=== PATIENT | male | born 1965 | race American Indian/Alaskan Native ===

== ENCOUNTER 2018-11-21 16:36 | Inpatient (IN) | payer BC ==
--- NOTE | 2018-11-21 16:48 | Emergency Department Report ---
Blank Doc - Documentation Documentation: This is a 53-year-old male that presents with bilateral testicular swelling and irritation. Denies any trauma or injuries. Patient stated was seen by PCP 2 days ago and was instructed to go to the ED [facility] but patient stated has not and came today. This initial assessment/diagnostic orders/clinical plan/treatment(s) is/are subject to change based on patient's health status, clinical progression and re- assessment by fellow clinical providers in the ED. Further treatment and workup at subsequent clinical providers discretion. Patient/guardians urged not to elope from the ED as their condition may be serious if not clinically assessed and managed. Initial orders include: 1- Patient sent to [facility] for further evaluation and treatment 2- UA 3- US doppler
[2018-11-21 17:31] LABS: Bilirubin,Urine NEG (Negative); Blood,Urine NEG (Negative); Color,Urine Yellow (Yellow); Hyaline Casts,Urine 1 /LPF; Mucus,Urine FEW /HPF
--- NOTE | 2018-11-21 17:59 | Emergency Department Report ---
ED General Adult HPI - General Chief complaint: Urogenital-Male Time Seen by Provider: 11/21/18 16:46 Source: patient, old records reviewed (no previous visit) Mode of arrival: Ambulatory Limitations: No Limitations - History of Present Illness Initial comments: 53 year old male with a past history of obesity and hypertension presents to the hospital with a note from his PMD stating that he needs a testicular ultrasound to rule out epididymitis versus torsion. Patient received this on November 18. Patient states he has had bilateral scrotal edema 2 weeks and has been progres sively worsening. Which is about 1 month he has developed progressively worsening bilateral lower extremity edema that then spread to his thigh and abdominal wall. He's also had worsening dyspnea on exertion, orthopnea, and PND. Patient has been receiving outpatient workup and evaluation. He has seen [employer] supervisor Dr Field and had an echocardiogram within the last month. He was informed that he does not have congestive heart failure and that this swelling is likely related to poor blood flow/Circulation. He also reports having outpatient ultrasound of his leg and is scheduled for a stress test. He denies chest pain or fever. Recently treated with and antibiotic for a suspected spide r bite his right lower extremity. He just does not know if he is currently on a water pill. Patient recently returned from [place] via car symptoms and dyspnea started prior to this trip. 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 PMD: Dr. Irwin Grubbs Severity scale (0 -10): 0 - Related Data Allergies Allergy/AdvReac Type Severity Reaction Status Date / Time clindamycin Allergy Hives Verified 11/21/18 16:53 ED Review of Systems ROS: Stated complaint: Other details as noted in HPI Comment: All other systems reviewed and negative ED Past Medical Hx - Past Medical History Hx Hypertension: Yes - Surgical History Additional Surgical History: hernia repair,right fx wrist - Social History Smoking Status: Never Smoker Substance Use Type: Alcohol ED Physical Exam - General Limitations: No Limitations - Other Other exam information: General: No limitations, patient is alert in no acute distress Head exam: Atraumatic, normocephalic Eyes exam: Normal appearance ENT: Moist mucous membrane Neck exam: Normal inspection, full range of motion, no meningismus nontender Respiratory exam: Clear to auscultation bilateral, no wheezes, rales, crackles Cardiovascular: Irregular rhythm, normal rate Abdomen: Soft, nondistended, and nontender, with normal bowel sounds, no rebound, or guarding : Significant bilateral edema without erythema, one, or tenderness exam Extremity: Full range of motion, significance bilateral 3+ lower extremity edema extending up scrotum and abdominal wall. Superficial skin breakdown to both anterior lower legs. Bilateral lower extremity erythema Psychiatric: normal affect, normal mood Skin: Warm, dry, intact ED Course Vital Signs 11/21/18 11/21/18 11/21/18 16:43 16:48 17:48 Temperature 98.7 F 98.7 F Pulse Rate 74 74 Respiratory 20 20 15 Rate Blood Pressure 133/78 Blood Pressure 133/78 [Left] O2 Sat by Pulse 100 100 Oximetry 11/21/18 11/21/18 11/21/18 18:00 18:16 19:12 Temperature Pulse Rate 103 H 114 H 110 H Respiratory 22 21 19 Rate Blood Pressure Blood Pressure [Left] O2 Sat by Pulse 96 94 Oximetry 11/21/18 11/21/18 11/21/18 19:14 19:16 19:30 Temperature Pulse Rate 104 H 112 H 97 H Respiratory 21 22 20 Rate Blood Pressure 121/77 121/77 Blood Pressure 121/77 [Left] O2 Sat by Pulse 96 95 96 Oximetry 11/21/18 11/21/18 11/21/18 19:46 20:00 20:16 Temperature Pulse Rate 99 H 98 H 95 H Respiratory 18 23 18 Rate Blood Pressure 121/77 121/77 121/77 Blood Pressure [Left] O2 Sat by Pulse 96 95 93 Oximetry 11/21/18 11/21/18 11/21/18 20:30 20:46 21:00 Temperature Pulse Rate 107 H 99 H 96 H Respiratory 18 19 19 Rate Blood Pressure 121/77 121/77 121/77 Blood Pressure [Left] O2 Sat by Pulse 95 93 93 Oximetry 11/21/18 11/21/18 11/21/18 21:16 21:30 21:52 Temperature Pulse Rate 87 102 H 110 H Respiratory 19 21 20 Rate Blood Pressure 121/77 121/77 121/77 Blood Pressure [Left] O2 Sat by Pulse 96 94 96 Oximetry 11/21/18 11/21/18 11/21/18 22:00 22:16 22:30 Temperature Pulse Rate 100 H 107 H 103 H Respiratory 26 H 24 22 Rate Blood Pressure 121/77 121/77 121/77 Blood Pressure [Left] O2 Sat by Pulse 96 93 93 Oximetry - Consultations Consultation #1: 11/21/18 23:[address] Field (I did discuss case) ED Medical Decision Making - Lab Data Result diagrams: 11/21/18 18:00 11/21/18 18:00 Lab Results 11/21/18 11/21/18 11/21/18 Range/Units 17:07 17:54 18:00 WBC 4.5 (4.5-11.0) K/mm3 RBC 3.74 (3.65-5.03) M/mm3 Hgb 11.8 (11.8-15.2) gm/dl Hct 36.2 (35.5-45.6) % MCV 97 H (84-94) fl MCH 32 (28-32) pg MCHC 33 (32-34) % RDW 14.4 (13.2-15.2) % Plt Count 195 (140-440) K/mm3 Lymph % (Auto) 23.1 (13.4-35.0) % [place] % (Auto) 14.8 H (0.0-7.3) % Eos % (Auto) 4.4 H (0.0-4.3) % Baso % (Auto) 1.4 (0.0-1.8) % Lymph # 1.0 L (1.2-5.4) K/mm3 [place] # 0.7 (0.0-0.8) K/mm3 Eos # 0.2 (0.0-0.4) K/mm3 Baso # 0.1 (0.0-0.1) K/mm3 Seg Neutrophils % 56.3 (40.0-70.0) % Seg Neutrophils # 2.5 (1.8-7.7) K/mm3 PT (12.2-14.9) Sec. INR (0.87-1.13) APTT (24.2-36.6) Sec. D-Dimer (0-234) ng/mlDDU Sodium (137-145) mmol/L Potassium (3.6-5.0) mmol/L Chloride (98-107) mmol/L Carbon Dioxide (22-30) mmol/L Anion Gap mmol/L BUN (9-20) mg/dL Creatinine (0.8-1.5) mg/dL Estimated GFR ml/min BUN/Creatinine Ratio % Glucose (75-100) mg/dL Calcium (8.4-10.2) mg/dL Total Bilirubin (0.1-1.2) mg/dL AST (5-40) units/L ALT (7-56) units/L Alkaline Phosphatase (35-129) units/L Total Creatine Kinase (55-170) units/L CK-MB (CK-2) (0.0-4.0) ng/mL CK-MB (CK-2) Rel Index (0-4) Troponin T (0.00-0.029) ng/mL NT-Pro-B Natriuret Pep (0-900) pg/mL Total Protein (6.3-8.2) g/dL Albumin (3.9-5) g/dL Albumin/Globulin Ratio % TSH (0.270-4.200) mlU/mL Free T4 (0.76-1.46) ng/dL Urine Color Yellow (Yellow) Urine Turbidity Clear (Clear) Urine pH 5.0 (5.0-7.0) Ur Specific [place] 1.026 (1.003-1.030) Urine Protein 30 mg/dl (Negative) mg/dL Urine Glucose (UA) Neg (Negative) mg/dL Urine Ketones Neg (Negative) mg/dL Urine Blood Neg (Negative) Urine Nitrite Neg (Negative) Urine Bilirubin Neg (Negative) Urine Urobilinogen 4.0 (<2.0) mg/dL Ur Leukocyte Esterase Neg (Negative) Urine WBC (Auto) 1.0 (0.0-6.0) /HPF Urine RBC (Auto) 1.0 (0.0-6.0) /HPF Hyaline Casts 1 /LPF Urine Mucus Few /HPF Urine Opiates Screen Presumptive negative Urine Methadone Screen Presumptive negative Ur Barbiturates Screen Presumptive negative Ur Phencyclidine Scrn Presumptive negative Ur Amphetamines Screen Presumptive negative U Benzodiazepines Scrn Presumptive negative Urine Cocaine Screen Presumptive positive U Marijuana (THC) Screen Presumptive positive Drugs of Abuse Note Disclamer 11/21/18 11/21/18 11/21/18 Range/Units 18:00 18:00 18:00 WBC (4.5-11.0) K/mm3 RBC (3.65-5.03) M/mm3 Hgb (11.8-15.2) gm/dl Hct (35.5-45.6) % MCV (84-94) fl MCH (28-32) pg MCHC (32-34) % RDW (13.2-15.2) % Plt Count (140-440) K/mm3 Lymph % (Auto) (13.4-35.0) % [place] % (Auto) (0.0-7.3) % Eos % (Auto) (0.0-4.3) % Baso % (Auto) (0.0-1.8) % Lymph # (1.2-5.4) K/mm3 [place] # (0.0-0.8) K/mm3 Eos # (0.0-0.4) K/mm3 Baso # (0.0-0.1) K/mm3 Seg Neutrophils % (40.0-70.0) % Seg Neutrophils # (1.8-7.7) K/mm3 PT 15.5 H (12.2-14.9) Sec. INR 1.16 H (0.87-1.13) APTT 30.4 (24.2-36.6) Sec. D-Dimer 1349.96 H (0-234) ng/mlDDU Sodium 142 (137-145) mmol/L Potassium 4.0 (3.6-5.0) mmol/L Chloride 101.6 (98-107) mmol/L Carbon Dioxide 31 H (22-30) mmol/L Anion Gap 13 mmol/L BUN 18 (9-20) mg/dL Creatinine 1.1 (0.8-1.5) mg/dL Estimated GFR > 60 ml/min BUN/Creatinine Ratio 16 % Glucose 84 (75-100) mg/dL Calcium 8.5 (8.4-10.2) mg/dL Total Bilirubin 0.60 (0.1-1.2) mg/dL AST 28 (5-40) units/L ALT 25 (7-56) units/L Alkaline Phosphatase 86 (35-129) units/L Total Creatine Kinase 313 H (55-170) units/L CK-MB (CK-2) 7.0 H (0.0-4.0) ng/mL CK-MB (CK-2) Rel Index 2.2 (0-4) Troponin T < 0.010 (0.00-0.029) ng/mL NT-Pro-B Natriuret Pep 1466 H (0-900) pg/mL Total Protein 6.3 (6.3-8.2) g/dL Albumin 3.3 L (3.9-5) g/dL Albumin/Globulin Ratio 1.1 % TSH (0.270-4.200) mlU/mL Free T4 (0.76-1.46) ng/dL Urine Color (Yellow) Urine Turbidity (Clear) Urine pH (5.0-7.0) Ur Specific [place] (1.003-1.030) Urine Protein (Negative) mg/dL Urine Glucose (UA) (Negative) mg/dL Urine Ketones (Negative) mg/dL Urine Blood (Negative) Urine Nitrite (Negative) Urine Bilirubin (Negative) Urine Urobilinogen (<2.0) mg/dL Ur Leukocyte Esterase (Negative) Urine WBC (Auto) (0.0-6.0) /HPF Urine RBC (Auto) (0.0-6.0) /HPF Hyaline Casts /LPF Urine Mucus /HPF Urine Opiates Screen Urine Methadone Screen Ur Barbiturates Screen Ur Phencyclidine Scrn Ur Amphetamines Screen U Benzodiazepines Scrn Urine Cocaine Screen U Marijuana (THC) Screen Drugs of Abuse Note 11/21/18 Range/Units 18:00 WBC (4.5-11.0) K/mm3 RBC (3.65-5.03) M/mm3 Hgb (11.8-15.2) gm/dl Hct (35.5-45.6) % MCV (84-94) fl MCH (28-32) pg MCHC (32-34) % RDW (13.2-15.2) % Plt Count (140-440) K/mm3 Lymph % (Auto) (13.4-35.0) % [place] % (Auto) (0.0-7.3) % Eos % (Auto) (0.0-4.3) % Baso % (Auto) (0.0-1.8) % Lymph # (1.2-5.4) K/mm3 [place] # (0.0-0.8) K/mm3 Eos # (0.0-0.4) K/mm3 Baso # (0.0-0.1) K/mm3 Seg Neutrophils % (40.0-70.0) % Seg Neutrophils # (1.8-7.7) K/mm3 PT (12.2-14.9) Sec. INR (0.87-1.13) APTT (24.2-36.6) Sec. D-Dimer (0-234) ng/mlDDU Sodium (137-145) mmol/L Potassium (3.6-5.0) mmol/L Chloride (98-107) mmol/L Carbon Dioxide (22-30) mmol/L Anion Gap mmol/L BUN (9-20) mg/dL Creatinine (0.8-1.5) mg/dL Estimated GFR ml/min BUN/Creatinine Ratio % Glucose (75-100) mg/dL Calcium (8.4-10.2) mg/dL Total Bilirubin (0.1-1.2) mg/dL AST (5-40) units/L ALT (7-56) units/L Alkaline Phosphatase (35-129) units/L Total Creatine Kinase (55-170) units/L CK-MB (CK-2) (0.0-4.0) ng/mL CK-MB (CK-2) Rel Index (0-4) Troponin T (0.00-0.029) ng/mL NT-Pro-B Natriuret Pep (0-900) pg/mL Total Protein (6.3-8.2) g/dL Albumin (3.9-5) g/dL Albumin/Globulin Ratio % TSH 2.940 (0.270-4.200) mlU/mL Free T4 1.38 (0.76-1.46) ng/dL Urine Color (Yellow) Urine Turbidity (Clear) Urine pH (5.0-7.0) Ur Specific [place] (1.003-1.030) Urine Protein (Negative) mg/dL Urine Glucose (UA) (Negative) mg/dL Urine Ketones (Negative) mg/dL Urine Blood (Negative) Urine Nitrite (Negative) Urine Bilirubin (Negative) Urine Urobilinogen (<2.0) mg/dL Ur Leukocyte Esterase (Negative) Urine WBC (Auto) (0.0-6.0) /HPF Urine RBC (Auto) (0.0-6.0) /HPF Hyaline Casts /LPF Urine Mucus /HPF Urine Opiates Screen Urine Methadone Screen Ur Barbiturates Screen Ur Phencyclidine Scrn Ur Amphetamines Screen U Benzodiazepines Scrn Urine Cocaine Screen U Marijuana (THC) Screen Drugs of Abuse Note - EKG Data -: EKG Interpreted by Me (afkarla ) EKG shows normal: axis (qrs -27), QRS complexes (qrsd 123), ST-T waves (no stemi) Rate: normal (98) - EKG Data When compared to previous EKG there are: previous EKG unavailable - Radiology Data Radiology results: report reviewed PROCEDURE: XR CHEST ROUTINE 2V TECHNIQUE: Chest 2 views HISTORY: sob COMPARISONS: FINDINGS: Cardiac and mediastinal contours are unremarkable. No focal pulmonary infiltrate identified. No pleural fluid collection seen. Pulmonary vasculature is unremarkable. IMPRESSION: No acute findings in the chest PROCEDURE: VL VENOUS DUPLEX LE BILAT TECHNIQUE: Ultrasound bilateral lower extremity venous system with pulsed and color Doppler evaluation HISTORY: b/l leg swelling COMPARISONS: FINDINGS: Deep venous system of the lower extremities demonstrates normal sonographic appearance. There is abnormal flow and waveforms seen on Doppler evaluation. Normal compressibility. There is a cystic focus at the right popliteal fossa 3.6 x 0.8 cm IMPRESSION: Yo's cyst right popliteal fossa No evidence for acute deep venous thrombosis. PROCEDURE: CT ANGIO CHEST TECHNIQUE: Computerized tomographic angiography of the chest was performed after the IV injection of iodinated nonionic contrast including image processing. The image data was postprocessed using 2-dimensional multiplanar reformatted (MPR) and 3-dimensional (MIP and/or volume rendered) techniques. Automated exposure control, adjustment of mA and/or kV according to patient size, or iterative reconstruction dose optimization techniques were utilized. CT DOSE LENGTH PRODUCT: mGycm HISTORY: elevated ddimer, sob COMPARISONS: None . FINDINGS: Heart and pericardium: Normal. Thoracic aorta: Normal. Pulmonary vasculature: There is no pulmonary embolism.. Lymph nodes: No enlarged thoracic lymph nodes. Lungs: Lungs are expanded. There are no infiltrates.. Pleural space: There is a moderate right pleural effusion. There is no pneumothorax.. Musculoskeletal structures: No significant abnormality. Upper abdominal structures: No significant abnormality. IMPRESSION: There is no thoracic aortic aneurysm There is no pulmonary embolism.. Lungs are expanded. There are no infiltrates.. There is a moderate right pleural effusion. There is no pneumothorax.. Testicular ultrasound: Verbal report provided since tech had difficulty standing studies to radiologist. No torsion. Scrotal wall edema noted. testicles unremarkable - Medical Decision Making No signs of DVT or PE. Patient has significant edema, a pleural effusion on CT chest, and new onset atrial fibrillation. Patient's medications are not available for review at this time. Patient will be admitted to the hospital further treatment and workup. - Differential Diagnosis PE, heart failure, liver failure, lung failure, CAD, DVT Critical Care Time: No Critical care attestation.: If time is entered above; I have spent that time in minutes in the direct care of this critically ill patient, excluding procedure time. ED Disposition Clinical Impression: Edema, Pleural effusion, right, New onset atrial fibrillation, Cocaine abuse Disposition: DC- TO HOME OR SELFCARE Is pt being admited?: Yes Condition: Stable Time of Disposition: 23:12 (Dr Lucia/hosp)
[2018-11-21 18:15] LABS: Basophils # (Auto) 0.1 K/mm3 (0.0-0.1); Basophils % (Auto) 1.4 % (0.0-1.8); Eosinophils # (Auto) 0.2 K/mm3 (0.0-0.4); Eosinophils % (Auto) 4.4 % (0.0-4.3); Hematocrit 36.2 % (35.5-45.6); Hemoglobin 11.8 gm/dl (11.8-15.2); Lymphocytes % (Auto) 23.1 % (13.4-35.0); Mean Corpuscular HGB Conc 33 % (32-34); Mean Corpuscular Volume 97 fl (84-94); Monocytes # (Auto) 0.7 K/mm3 (0.0-0.8); Monocytes % (Auto) 14.8 % (0.0-7.3); Platelet Count 195 K/mm3 (140-440); Red Blood Count 3.74 M/mm3 (3.65-5.03); Red Cell Distribution Width 14.4 % (13.2-15.2)
[2018-11-21 18:25] LABS: INR 1.16 (0.87-1.13)
[2018-11-21 18:26] LABS: Partial Thromboplastin Time 30.4 Sec. (24.2-36.6)
[2018-11-21 18:33] LABS: Alanine Aminotransferase 25 units/L (7-56); Albumin 3.3 g/dL (3.9-5); BUN/Creatinine Ratio 16; Blood Urea Nitrogen 18 mg/dL (9-20); Calcium 8.5 mg/dL (8.4-10.2); Hemolysis Index 5
[2018-11-21 18:33] LABS: Amphetamine Screen,Urine PRESUMPTIVE NEGATIVE; Benzodiazepines Screen,Urine PRESUMPTIVE NEGATIVE; Methadone Screen,Urine PRESUMPTIVE NEGATIVE; Opiate Screen,Urine PRESUMPTIVE NEGATIVE
--- NOTE | 2018-11-21 18:35 | XRay Report ---
PROCEDURE: XR CHEST ROUTINE 2V TECHNIQUE: Chest 2 views HISTORY: sob COMPARISONS: FINDINGS: Cardiac and mediastinal contours are unremarkable. No focal pulmonary infiltrate identified. No pleur al fluid collection seen. Pulmonary vasculature is unremarkable. IMPRESSION: No acute findings in the chest This document is electronically signed by Wei Odonnell MD., November 21 2018 06:33:13 PM ET
[2018-11-21 18:49] LABS: Cannabinoid Screen,Urine PRESUMPTIVE POSITIVE; Cocaine Screen,Urine PRESUMPTIVE POSITIVE
--- NOTE | 2018-11-21 19:37 | Vascular Lab Report ---
PROCEDURE: VL VENOUS DUPLEX LE BILAT TECHNIQUE: Ultrasound bilateral lower extremity venous system with pulsed and color Doppler evaluati on HISTORY: b/l leg swelling COMPARISONS: FINDINGS: Deep venous system of the lower extremities demonstrates normal sonographic appearance. There is abno rmal flow and waveforms seen on Doppler evaluation. Normal compressibility. There is a cystic focus at the right popliteal fossa 3.6 x 0.8 cm IMPRESSION: Yo's cyst right popliteal fossa No evidence for acute deep venous thrombosis. This document is electronically signed by Wei Odonnell MD., November 21 2018 07:34:40 PM ET
[2018-11-21 19:54] LABS: Free T4 (Free Thyroxine) 1.38 ng/dL (0.76-1.46)
--- NOTE | 2018-11-21 22:54 | Cat Scan Report ---
PROCEDURE: CT ANGIO CHEST TECHNIQUE: Computerized tomographic angiography of the chest was performed after the IV injection of iodinated nonionic contrast including image processing. The image data was postprocessed using 2-di mensional multiplanar reformatted (MPR) and 3-dimensional (MIP and/or volume rendered) techniques. Au tomated exposure control, adjustment of mA and/or kV according to patient size, or iterative reconstr uction dose optimization techniques were utilized. CT DOSE LENGTH PRODUCT: mGycm HISTORY: elevated ddimer, sob COMPARISONS: None . FINDINGS: Heart and pericardium: Normal. Thoracic aorta: Normal. Pulmonary vasculature: There is no pulmonary embolism.. Lymph nodes: No enlarged thoracic lymph nodes. Lungs: Lungs are expanded. There are no infiltrates.. Pleural space: There is a moderate right pleural effusion. There is no pneumothorax.. Musculoskeletal structures: No significant abnormality. Upper abdominal structures: No significant abnormality. IMPRESSION: There is no thoracic aortic aneurysm There is no pulmonary embolism.. Lungs are expanded. There are no infiltrates.. There is a moderate right pleural effusion. There is no pneumothorax.. This document is electronically signed by Fabio Guzman MD., November 21 2018 10:51:53 PM ET
[2018-11-21] MEDS ORDERED: LASIX IV ONE (23:44)
[2018-11-21] MEDS ORDERED: SODIUM CHLORIDE FLUSH SYRINGE 10 ML IV PRN (23:44)
[2018-11-21] MEDS ORDERED: ZOFRAN IV PRN (23:44)
[2018-11-21] MEDS ORDERED: PERCOCET 5/325 PO PRN (23:44)
[2018-11-21] MEDS ORDERED: TYLENOL PO PRN (23:44)
--- NOTE | 2018-11-21 23:49 | History and Physical Report ---
History of Present Illness Date of examination: 11/21/18 History of present illness: 53-year-old man with a history of hypertension, irregular heartbeat comes to emergency room for evaluation of lower extremity edema and has gotten progressively worse, now involving the thigh, scrotum, abdomen. His symptoms started 1-1/2 months ago. Also complaining of PND, orthopne times several months for 7 months. Patient had been seen a student development specialist, he had an echocardiogram done. Also stated that he was bitten on the right leg by a spider in July. Review of systems Constitutional: no weight loss, chills, fever Ears, eyes, nose, mouth and throat: no nasal congestion, no nasal discharge, no sinus pressure, no vision change, no red eye. Neck: No neck pain or rigidity. Cardiovascular: no palpitations, chest pain Respiratory: no cough, +shortness of breath Gastrointestinal: no hematochezia, abdominal pain Genitourinary : no frequency , no hematuria Musculoskeletal: no joint swelling or muscle ache Integumentary: no rash, no pruritis Neurological: no parathesias, no focal weakness Endocrine: no cold or heat intolerance, no polyuria or polydipsia Hematologic/Lymphatic: no easy bruising, no easy bleeding, no gland swelling Allergic/Immunologic: no urticaria, no angioedema. PAST MEDICAL HISTORY: irregular heartbeat, hypertension PAST SURGICAL HISTORY: Hernia repair SOCIAL HISTORY: Drink 2 glasses of wine on weekends, + cocaine, no tobacco FAMILY HISTORY: Hypertension Medications and Allergies Allergies Allergy/AdvReac Type Severity Reaction Status Date / Time clindamycin Allergy Hives Verified 11/21/18 16:53 Home Medications Medication Instructions Recorded Confirmed Last Taken Type Bisoprolol Fumarate 10 mg PO DAILY 11/21/18 11/21/18 11/21/18 08:00 History Chlorthalidone 25 mg PO AMHY 11/21/18 11/21/18 11/21/18 08:00 History Meloxicam 15 mg PO HS 11/21/18 11/21/18 11/20/18 21:00 History NIFEdipine [Nifedipine ER] 60 mg PO HS 11/21/18 11/21/18 11/20/18 21:00 History Spironolactone 25 mg PO DAILY 11/21/18 11/21/18 11/21/18 08:00 History tiZANidine [Zanaflex] 4 mg PO HS 11/21/18 11/21/18 11/20/18 21:00 History Active Meds: Active Medications Acetaminophen (Tylenol) 650 mg PO Q4H PRN PRN Reason: Pain MILD(1-3)/Fever >100.5/BOONE Enoxaparin Sodium (Lovenox) 30 mg SUB-Q QDAY NICOLE Furosemide (Lasix) 40 mg IV ONCE ONE Stop: 11/21/18 23:45 Furosemide (Lasix) 40 mg IV 0600,1800 NICOLE Ondansetron HCl (Zofran) 4 mg IV Q8H PRN PRN Reason: Nausea And Vomiting Oxycodone/Acetaminophen (Percocet 5/325) 1 tab PO Q6H PRN PRN Reason: Pain, Moderate (4-6) Sodium Chloride (Sodium Chloride Flush Syringe 10 Ml) 10 ml IV BID NICOLE Sodium Chloride (Sodium Chloride Flush Syringe 10 Ml) 10 ml IV PRN PRN PRN Reason: LINE FLUSH Exam - Physical Exam Narrative exam: General Apperance: The patient lying in bed, breathing comfortable HEENT: Normocephalic, atraumatic. Pupils equally round and reactive to light, EOMI, no sclericterus or JVD or thyromegaly or nodule. , no carotid bruit, mucous membranes moist, no exudate or erythema Heart: S1-S2, regular is rhythm Lungs: Clear to auscultation bilaterally, breathing comfortable Abdomen: Positive bowel sounds, soft, nontender, nondistended, no organomegaly Extremities: 3+ edema up to the abdomen, no cyanosis clubbing Skin: Right leg wound, no rash, nodule, warm and dry Neuro: cranial nerves 2-12 intact, speech is fluent, motor/sensory intact - Constitutional Vitals: Temp Pulse Resp BP Pulse Ox 98.7 F 97 H 20 124/94 92 11/21/18 16:48 11/21/18 23:35 11/21/18 23:35 11/21/18 23:35 11/21/18 23:35 Results - Labs CBC & Chem 7: 11/21/18 18:00 11/21/18 18:00 Labs: Abnormal lab results 11/21/18 11/21/18 11/21/18 Range/Units 18:00 18:00 18:00 MCV 97 H (84-94) fl [place] % (Auto) 14.8 H (0.0-7.3) % Eos % (Auto) 4.4 H (0.0-4.3) % Lymph # 1.0 L (1.2-5.4) K/mm3 PT 15.5 H (12.2-14.9) Sec. INR 1.16 H (0.87-1.13) D-Dimer 1349.96 H (0-234) ng/mlDDU Carbon Dioxide 31 H (22-30) mmol/L Total Creatine Kinase (55-170) units/L CK-MB (CK-2) (0.0-4.0) ng/mL NT-Pro-B Natriuret Pep 1466 H (0-900) pg/mL Albumin 3.3 L (3.9-5) g/dL 11/21/18 Range/Units 18:00 MCV (84-94) fl [place] % (Auto) (0.0-7.3) % Eos % (Auto) (0.0-4.3) % Lymph # (1.2-5.4) K/mm3 PT (12.2-14.9) Sec. INR (0.87-1.13) D-Dimer (0-234) ng/mlDDU Carbon Dioxide (22-30) mmol/L Total Creatine Kinase 313 H (55-170) units/L CK-MB (CK-2) 7.0 H (0.0-4.0) ng/mL NT-Pro-B Natriuret Pep (0-900) pg/mL Albumin (3.9-5) g/dL - Imaging and Cardiology Chest x-ray: report reviewed CT scan - chest: report reviewed Assessment and Plan Doppler of the lower extremity shows no DVT Testicular ultrasound pending Assessment Anasarca, suspect CHF A. fib hypertension Lower extremity wound Substance abuse Plan Admit to medicine Diurese with IV Lasix Check cardiac enzymes, echo, consult cardiology Defer anticoagulation to cardiology Consult wound care, start asa Continue appropriate outpatient medications
[2018-11-22 03:13] LABS: Basophils % (Auto) 0.6 % (0.0-1.8); Eosinophils # (Auto) 0.2 K/mm3 (0.0-0.4); Eosinophils % (Auto) 4.8 % (0.0-4.3); Hematocrit 39.8 % (35.5-45.6); Hemoglobin 12.9 gm/dl (11.8-15.2); Lymphocytes # (Auto) 1.4 K/mm3 (1.2-5.4); Lymphocytes % (Auto) 29.4 % (13.4-35.0); Mean Corpuscular HGB Conc 33 % (32-34); Mean Corpuscular Volume 97 fl (84-94); Monocytes # (Auto) 0.7 K/mm3 (0.0-0.8); Monocytes % (Auto) 14.3 % (0.0-7.3); Platelet Count 198 K/mm3 (140-440); Red Blood Count 4.09 M/mm3 (3.65-5.03); Red Cell Distribution Width 14.6 % (13.2-15.2)
[2018-11-22 03:32] LABS: Creatine Kinase MB 6.1 ng/mL (0.0-4.0)
[2018-11-22 03:35] LABS: BUN/Creatinine Ratio 15; Blood Urea Nitrogen 17 mg/dL (9-20); Calcium 8.6 mg/dL (8.4-10.2); Hemolysis Index 7
[2018-11-22 06:31] LABS: Creatine Kinase MB 5.9 ng/mL (0.0-4.0)
[2018-11-22] MEDS: LASIX IV SCH ×2 (06:45→18:22)
[2018-11-22] MEDS ORDERED: LOVENOX SUB-Q SCH ×2 (10:00→16:00)
[2018-11-22] MEDS ORDERED: BISOPROLOL FUMARATE 10 MG PO SCH (10:00)
--- NOTE | 2018-11-22 11:47 | Consultation ---
History of Present Illness Consult date: 11/22/18 Requesting physician: PRASHANT CATES Consult reason: congestive heart failure History of present illness: The patient is followed by Dr. Field in our office. He has a history of a persistent atrial fibrillation. He presents with onset of bilateral lower extremity edema, orthopnea and shortness of breath since July 2018. He has also noted scrotal edema for 1.5 weeks. He denies chest pain. He presented to the ER due to worsening of symptoms. Chest CTA was reported as showing moderate right pleural effusion. His chest x-ray however does not show significant pleural effusion. He had a venous Doppler study of the LEs late last year which showed venous insufficiency involving both popliteal veins. Past History Past Medical History: atrial fib, hypertension Past Surgical History: hernia repair Social history: other (cocaine and marijuana). denies: smoking Family history: CAD Medications and Allergies Allergies Allergy/AdvReac Type Severity Reaction Status Date / Time clindamycin Allergy Hives Verified 11/21/18 16:53 Home Medications Medication Instructions Recorded Confirmed Last Taken Type Bisoprolol Fumarate 10 mg PO DAILY 11/21/18 11/21/18 11/21/18 08:00 History Chlorthalidone 25 mg PO AMHY 11/21/18 11/21/18 11/21/18 08:00 History Meloxicam 15 mg PO HS 11/21/18 11/21/18 11/20/18 21:00 History NIFEdipine [Nifedipine ER] 60 mg PO HS 11/21/18 11/21/18 11/20/18 21:00 History Spironolactone 25 mg PO DAILY 11/21/18 11/21/18 11/21/18 08:00 History tiZANidine [Zanaflex] 4 mg PO HS 11/21/18 11/21/18 11/20/18 21:00 History Active Meds: Active Medications Acetaminophen (Tylenol) 650 mg PO Q4H PRN PRN Reason: Pain MILD(1-3)/Fever >100.5/BOONE Aspirin (Aspirin) 325 mg PO QDAY NICOLE Enoxaparin Sodium (Lovenox) 40 mg SUB-Q QDAY NICOLE Furosemide (Lasix) 40 mg IV 0600,1800 NICOLE Last Admin: 11/22/18 06:45 Dose: 40 mg Documented by: Miscellaneous Medication (Bisoprolol Fumarate [Bisoprolol Fumarate]) 10 mg PO DAILY [facility] Ondansetron HCl (Zofran) 4 mg IV Q8H PRN PRN Reason: Nausea And Vomiting Oxycodone/Acetaminophen (Percocet 5/325) 1 tab PO Q6H PRN PRN Reason: Pain, Moderate (4-6) Pneumococcal Polyvalent Vaccine (Pneumovax 23) 0.5 ml IM .ONCE ONE Stop: 11/22/18 12:01 Sodium Chloride (Sodium Chloride Flush Syringe 10 Ml) 10 ml IV BID [facility] Sodium Chloride (Sodium Chloride Flush Syringe 10 Ml) 10 ml IV PRN PRN PRN Reason: LINE FLUSH Review of Systems Constitutional: no fever, no chills Ears, nose, mouth and throat: no ear pain, no ear discharge, no sore throat Cardiovascular: orthopnea, edema, no chest pain Respiratory: dyspnea on exertion, no cough Gastrointestinal: no abdominal pain, no nausea, no vomiting, no diarrhea, no constipation Genitourinary Male: no dysuria, no urinary frequency Rectal: no pain, no bleeding Musculoskeletal: no neck stiffness, no neck pain, no myalgias Integumentary: no rash, no pruritis Neurological: no paralysis, no weakness, no parathesias, no headaches Endocrine: no cold intolerance, no heat intolerance Hematologic/Lymphatic: no easy bruising, no easy bleeding Allergic/Immunologic: no urticaria, no wheezing Physical Examination Vital Signs Last Vital Signs Temp 97.7 F 11/22/18 07:57 Pulse 111 H 11/22/18 04:00 Resp 18 11/22/18 07:57 BP 132/72 11/22/18 07:57 Pulse Ox 98 11/22/18 05:30 General appearance: no acute distress HEENT: Positive: EOMI, Normocephaly, Mucus Membranes Moist Neck: Positive: neck supple, trachea midline, JVD/HJR (elevated) Cardiac: Positive: Reg Rate and Rhythm, S1/S2 Lungs: Positive: Decreased Breath Sounds (at bases) Neuro: Positive: Grossly Intact Abdomen: Positive: Soft, Active Bowel Sounds. Negative: Tender Skin: Positive: Wound (both legs) Musculoskeletal: Normal Range of Motion Extremities: Present: edema (moderate pitting bilateral leg edema) Results 11/22/18 02:50 11/22/18 02:50 Cardiac Enzymes 11/21/18 11/21/18 11/22/18 Range/Units 18:00 18:00 02:50 AST 28 (5-40) units/L CK-MB (CK-2) 7.0 H 6.1 H (0.0-4.0) ng/mL 11/22/18 Range/Units 05:13 AST (5-40) units/L CK-MB (CK-2) 5.9 H (0.0-4.0) ng/mL Coagulation 11/21/18 Range/Units 18:00 PT 15.5 H (12.2-14.9) Sec. INR 1.16 H (0.87-1.13) APTT 30.4 (24.2-36.6) Sec. CBC 11/21/18 11/22/18 Range/Units 18:00 02:50 WBC 4.5 4.7 (4.5-11.0) K/mm3 RBC 3.74 4.09 (3.65-5.03) M/mm3 Hgb 11.8 12.9 (11.8-15.2) gm/dl Hct 36.2 39.8 (35.5-45.6) % Plt Count 195 198 (140-440) K/mm3 Lymph # 1.0 L 1.4 (1.2-5.4) K/mm3 [place] # 0.7 0.7 (0.0-0.8) K/mm3 Eos # 0.2 0.2 (0.0-0.4) K/mm3 Baso # 0.1 0.0 (0.0-0.1) K/mm3 Comprehensive Metabolic Panel 11/21/18 11/22/18 Range/Units 18:00 02:50 Sodium 142 143 (137-145) mmol/L Potassium 4.0 3.9 (3.6-5.0) mmol/L Chloride 101.6 98.3 (98-107) mmol/L Carbon Dioxide 31 H 33 H (22-30) mmol/L BUN 18 17 (9-20) mg/dL Creatinine 1.1 1.1 (0.8-1.5) mg/dL Glucose 84 104 H (75-100) mg/dL Calcium 8.5 8.6 (8.4-10.2) mg/dL AST 28 (5-40) units/L ALT 25 (7-56) units/L Alkaline Phosphatase 86 (35-129) units/L Total Protein 6.3 (6.3-8.2) g/dL Albumin 3.3 L (3.9-5) g/dL - Imaging and Cardiology EKG: image reviewed EKG interpretations - Telemetry EKG Rhythm: Atrial Fibrillation - EKG Supraventricular dysrhythmia: atrial fibrillation Assessment and Plan Initiate guideline-directed heart failure therapy. Obtain echocardiogram. Anticoagulation for atrial fibrillation. - Patient Problems (1) Acute heart failure Current Visit: Yes Status: Acute (2) Persistent atrial fibrillation Current Visit: Yes Status: Acute (3) Hypertension Current Visit: Yes Status: Chronic Qualifiers: Hypertension type: essential hypertension Qualified Code(s): I10 - Ess ential (primary) hypertension (4) Morbid obesity Current Visit: Yes Status: Chronic (5) Chronic venous insufficiency Current Visit: Yes Status: Chronic
[2018-11-22] MEDS ORDERED: AFLURIA QUAD 2018-2019 SYRINGE IM ONE (12:00)
[2018-11-22] MEDS ORDERED: PNEUMOVAX 23 IM ONE (12:00)
[2018-11-22] MEDS: ASPIRIN PO SCH (13:39)
[2018-11-22] MEDS: SODIUM CHLORIDE FLUSH SYRINGE 10 ML IV SCH ×2 (13:43→23:06)
[2018-11-22] MEDS: ALDACTONE PO SCH (13:50)
--- NOTE | 2018-11-22 15:50 | Progress Note ---
Assessment and Plan Anasarca, suspect new onset CHF A. fib, chronic persistent hypertension, stable Lower extremity wound Chronic venous insufficiency Substance abuse, + UDS Scrotal swelling, Plan cont to monitor at tele cont to Diuresis with IV Lasix follow 2d echo/scrotal US, consulted cardiology start on therapeutic dose of lovenoc for anticoagulation, Consulted wound care, started on asa, statin Continue appropriate outpatient medications counselled for substance abuse Brief History: The patient who is followed by Dr. Field with history of a persistent atrial fibrillation presented with onset of bilateral lower extremity edema, orthopnea and shortness of breath since July 2018. He has also noted scrotal edema for 1.5 weeks. He denies chest pain. He presented to the ER due to worsening of symptoms. Chest CTA was reported as showing moderate right pleural effusion. Patient admitted for further evaluation and management. Consulted cardiology. Subjective Date of service: 11/22/18 Interval history: Patient seen and examined c/o LE swelling and severe scrotal swelling denies chest pain Objective - Constitutional Vitals: Vital Signs - 12hr 11/22/18 11/22/18 11/22/18 03:58 04:00 05:30 Temperature 97.8 F Pulse Rate 81 111 H Respiratory 18 Rate Blood Pressure 127/104 130/84 O2 Sat by Pulse 97 95 98 Oximetry 11/22/18 07:57 Temperature 97.7 F Pulse Rate Respiratory 18 Rate Blood Pressure 132/72 O2 Sat by Pulse Oximetry General appearance: Present: no acute distress, obese - EENT Eyes: PERRL, EOM intact ENT: hearing intact, clear oral mucosa Ears: bilateral: normal - Neck Neck: supple, normal ROM - Respiratory Respiratory effort: normal Respiratory: bilateral: rales - Cardiovascular Rhythm: regular Heart Sounds: Present: S1 & S2. Absent: gallop, rub Extremities: pulses intact, normal color, Full ROM Extremity abnormal: edema - Gastrointestinal General gastrointestinal: Present: soft, non-tender, non-distended, normal bowel sounds - Genitourinary Male genitourinary: scrotal edema - Integumentary Integumentary: clear, warm, dry - Musculoskeletal Musculoskeletal: 1, strength equal bilaterally - Neurologic Neurologic: moves all extremities - Psychiatric Psychiatric: memory intact, appropriate mood/affect, intact judgment & insight - Labs CBC & Chem 7: 11/22/18 02:50 11/22/18 02:50 Labs: Abnormal lab results 11/21/18 11/21/18 11/21/18 Range/Units 18:00 18:00 18:00 MCV 97 H (84-94) fl [place] % (Auto) 14.8 H (0.0-7.3) % Eos % (Auto) 4.4 H (0.0-4.3) % Lymph # 1.0 L (1.2-5.4) K/mm3 PT 15.5 H (12.2-14.9) Sec. INR 1.16 H (0.87-1.13) D-Dimer 1349.96 H (0-234) ng/mlDDU Carbon Dioxide 31 H (22-30) mmol/L Glucose (75-100) mg/dL Total Creatine Kinase (55-170) units/L CK-MB (CK-2) (0.0-4.0) ng/mL NT-Pro-B Natriuret Pep 1466 H (0-900) pg/mL Albumin 3.3 L (3.9-5) g/dL 11/21/18 11/22/18 11/22/18 Range/Units 18:00 02:50 02:50 MCV 97 H (84-94) fl [place] % (Auto) 14.3 H (0.0-7.3) % Eos % (Auto) 4.8 H (0.0-4.3) % Lymph # (1.2-5.4) K/mm3 PT (12.2-14.9) Sec. INR (0.87-1.13) D-Dimer (0-234) ng/mlDDU Carbon Dioxide 33 H (22-30) mmol/L Glucose 104 H (75-100) mg/dL Total Creatine Kinase 313 H 302 H (55-170) units/L CK-MB (CK-2) 7.0 H 6.1 H (0.0-4.0) ng/mL NT-Pro-B Natriuret Pep (0-900) pg/mL Albumin (3.9-5) g/dL 11/22/18 Range/Units 05:13 MCV (84-94) fl [place] % (Auto) (0.0-7.3) % Eos % (Auto) (0.0-4.3) % Lymph # (1.2-5.4) K/mm3 PT (12.2-14.9) Sec. INR (0.87-1.13) D-Dimer (0-234) ng/mlDDU Carbon Dioxide (22-30) mmol/L Glucose (75-100) mg/dL Total Creatine Kinase 306 H (55-170) units/L CK-MB (CK-2) 5.9 H (0.0-4.0) ng/mL NT-Pro-B Natriuret Pep (0-900) pg/mL Albumin (3.9-5) g/dL - Imaging and cardiology Chest x-ray: report reviewed CT scan - chest: report reviewed
[2018-11-22] MEDS: LOVENOX SUB-Q SCH ×4 (18:20→22:40)
[2018-11-22] MEDS ORDERED: COREG PO SCH (22:00)
[2018-11-22] MEDS: COREG PO SCH (22:40)
[2018-11-23] MEDS: LASIX IV SCH ×2 (06:39→19:26)
--- NOTE | 2018-11-23 08:25 | Ultrasound Report ---
ULTRASOUND TESTICULAR DOPPLER COMPLETE History: Testicular swelling. Technique: Trans-scrotal ultrasound with spectral doppler interrogation. Findings: There is moderate to severe diffuse scrotal skin thickening measuring up to 5 cm in thickness. No obvious abscess or fluid collection. Both testes and epididymides are normal size, contour and echotexture. Trace bilateral hydroceles are identified which are probably physiologic. No varicocele. No mass or pathologic calcifications. Doppler interrogation depicts symmetric arterial flow to both testes. IMPRESSION: Diffuse nonspecific scrotal skin thickening/edema. No evidence for abscess or soft tissue gas. This may represent nonspecific edema or cellulitis.
[2018-11-23] MEDS: COZAAR PO SCH (10:11)
[2018-11-23] MEDS: ASPIRIN PO SCH (10:11)
[2018-11-23] MEDS: LOVENOX SUB-Q SCH ×2 (10:12→22:50)
[2018-11-23] MEDS: ALDACTONE PO SCH (10:12)
[2018-11-23] MEDS: COREG PO SCH ×2 (10:12→22:50)
--- NOTE | 2018-11-23 11:25 | Progress Note ---
Assessment and Plan Echo reviewed - EF 20-25%, 4-chamber dilated CMP, mild to mod LVH. Coronary angiography recommended to r/o ischemic CMP. Indications, potential risks and benefits of LHC reviewed with pt and he is agreeable to proceed in AM. NPO after MN. Optimize HR - increase lopressor. Cont losartan, aldactone. In regards to systemic AC for AFib, cont full dose lovenox BID and plan to convert to NOAC prior to hospital discharge. The patient has been seen in conjunction with Dr. Mccracken who agrees with the assessment and plan of care. - Patient Problems (1) Acute HFrEF (heart failure with reduced ejection fraction) Current Visit: Yes Status: Acute (2) Dilated cardiomyopathy Current Visit: Yes Status: Acute (3) Persistent atrial fibrillation Current Visit: Yes Status: Acute (4) Hypertension Current Visit: Yes Status: Chronic Qualifiers: Hypertension type: essential hypertension Qualified Code(s): I10 - Essential (primary) hypertension (5) Chronic venous insufficiency Current Visit: Yes Status: Chronic (6) Morbid obesity Current Visit: Yes Status: Chronic (7) Cocaine abuse Current Visit: Yes Status: Acute Subjective Date of service: 11/23/18 Principal diagnosis: HF Interval history: pt resting in bed, still with orthopnea and BLE edema. states he is feeling a little better. in AFib with bouts of RVR overnight. Objective Last Vital Signs Temp 98.5 F 11/23/18 08:23 Pulse 100 H 11/23/18 10:12 Resp 20 11/23/18 08:23 BP 148/99 11/23/18 10:12 Pulse Ox 93 11/23/18 04:22 - Physical Examination HEENT: Positive: EOMI, Normocephaly, Mucus Membranes Moist Neck: Positive: neck supple, trachea midline, JVD/HJR (elevated) Cardiac: Positive: irregularly irregular, S1/S2 Lungs: Positive: Decreased Breath Sounds Neuro: Positive: Grossly Intact Abdomen: Positive: Soft, Active Bowel Sounds. Negative: Tender Skin: Positive: Wound (both legs) Musculoskeletal: Normal Range of Motion Extremities: Present: edema (moderate pitting bilateral leg edema) - Imaging and Cardiology EKG: image reviewed - Telemetry EKG Rhythm: Atrial Fibrillation
--- NOTE | 2018-11-23 11:36 | Progress Note ---
Assessment and Plan Assessment and plan: Anasarca, Acute systolic CHF A. fib, chronic persistent hypertension, stable Lower extremity wound Chronic venous insufficiency Substance abuse, + UDS Scrotal swelling, Plan cont to monitor at tele cont to Diuresis with IV Lasix follow 2d echo/scrotal US, consulted cardiology start on therapeutic dose of lovenoc for anticoagulation, Consulted wound care, started on asa, statin Continue appropriate outpatient medications counselled for substance abuse For cardiac cath 11/25 as per cardiology History Interval history: Feels better Less shortness of breath No chest pain Hospitalist Physical - Physical exam Narrative exam: GEN: Not in acute distress, lying in bed, morbidly obese HEENT: Normocephalic, atraumatic, Neck: supple, No JVD Lungs: Clear to auscultation bilat, no crackles, no wheeze Abd:soft, non tender, non distended, normal bowel sounds Ext: No edema, no clubbing, no cyanosis Neuro:Awake,alert,oriented X 3, no focal signs Skin:No rash Psych: normal mood - Constitutional Vitals: Temp Pulse Resp BP Pulse Ox 98.5 F 100 H 20 148/99 93 11/23/18 08:23 11/23/18 10:12 11/23/18 08:23 11/23/18 10:12 11/23/18 04:22 General appearance: Present: obese Results - Labs CBC & Chem 7: 11/22/18 02:50 11/22/18 02:50 Labs: Laboratory Last Values WBC 4.7 K/mm3 (4.5-11.0) 11/22/18 02:50 RBC 4.09 M/mm3 (3.65-5.03) 11/22/18 02:50 Hgb 12.9 gm/dl (11.8-15.2) 11/22/18 02:50 Hct 39.8 % (35.5-45.6) 11/22/18 02:50 MCV 97 fl (84-94) H 11/22/18 02:50 MCH 32 pg (28-32) 11/22/18 02:50 MCHC 33 % (32-34) 11/22/18 02:50 RDW 14.6 % (13.2-15.2) 11/22/18 02:50 Plt Count 198 K/mm3 (140-440) 11/22/18 02:50 Lymph % (Auto) 29.4 % (13.4-35.0) 11/22/18 02:50 [place] % (Auto) 14.3 % (0.0-7.3) H 11/22/18 02:50 Eos % (Auto) 4.8 % (0.0-4.3) H 11/22/18 02:50 Baso % (Auto) 0.6 % (0.0-1.8) 11/22/18 02:50 Lymph # 1.4 K/mm3 (1.2-5.4) 11/22/18 02:50 [place] # 0.7 K/mm3 (0.0-0.8) 11/22/18 02:50 Eos # 0.2 K/mm3 (0.0-0.4) 11/22/18 02:50 Baso # 0.0 K/mm3 (0.0-0.1) 11/22/18 02:50 Seg Neutrophils % 50.9 % (40.0-70.0) 11/22/18 02:50 Seg Neutrophils # 2.4 K/mm3 (1.8-7.7) 11/22/18 02:50 PT 15.5 Sec. (12.2-14.9) H 11/21/18 18:00 INR 1.16 (0.87-1.13) H 11/21/18 18:00 APTT 30.4 Sec. (24.2-36.6) 11/21/18 18:00 D-Dimer 1349.96 ng/mlDDU (0-234) H 11/21/18 18:00 Sodium 143 mmol/L (137-145) 11/22/18 02:50 Potassium 3.9 mmol/L (3.6-5.0) 11/22/18 02:50 Chloride 98.3 mmol/L (98-107) 11/22/18 02:50 Carbon Dioxide 33 mmol/L (22-30) H 11/22/18 02:50 Anion Gap 16 mmol/L 11/22/18 02:50 BUN 17 mg/dL (9-20) 11/22/18 02:50 Creatinine 1.1 mg/dL (0.8-1.5) 11/22/18 02:50 Estimated GFR > 60 ml/min 11/22/18 02:50 BUN/Creatinine Ratio 15 % 11/22/18 02:50 Glucose 104 mg/dL (75-100) H 11/22/18 02:50 Calcium 8.6 mg/dL (8.4-10.2) 11/22/18 02:50 Magnesium 1.70 mg/dL (1.7-2.3) 11/23/18 05:46 Total Bilirubin 0.60 mg/dL (0.1-1.2) 11/21/18 18:00 AST 28 units/L (5-40) 11/21/18 18:00 ALT 25 units/L (7-56) 11/21/18 18:00 Alkaline Phosphatase 86 units/L (35-129) 11/21/18 18:00 Total Creatine Kinase 306 units/L (55-170) H 11/22/18 05:13 CK-MB (CK-2) 5.9 ng/mL (0.0-4.0) H 11/22/18 05:13 CK-MB (CK-2) Rel Index 1.9 (0-4) 11/22/18 05:13 Troponin T < 0.010 ng/mL (0.00-0.029) 11/22/18 05:13 NT-Pro-B Natriuret Pep 1466 pg/mL (0-900) H 11/21/18 18:00 Total Protein 6.3 g/dL (6.3-8.2) 11/21/18 18:00 Albumin 3.3 g/dL (3.9-5) L 11/21/18 18:00 Albumin/Globulin Ratio 1.1 % 11/21/18 18:00 TSH 2.940 mlU/mL (0.270-4.200) 11/21/18 18:00 Free T4 1.38 ng/dL (0.76-1.46) 11/21/18 18:00 Urine Color Yellow (Yellow) 11/21/18 17:07 Urine Turbidity Clear (Clear) 11/21/18 17:07 Urine pH 5.0 (5.0-7.0) 11/21/18 17:07 Ur Specific Linch 1.026 (1.003-1.030) 11/21/18 17:07 Urine Protein 30 mg/dl mg/dL (Negative) 11/21/18 17:07 Urine Glucose (UA) Neg mg/dL (Negative) 11/21/18 17:07 Urine Ketones Neg mg/dL (Negative) 11/21/18 17:07 Urine Blood Neg (Negative) 11/21/18 17:07 Urine Nitrite Neg (Negative) 11/21/18 17:07 Urine Bilirubin Neg (Negative) 11/21/18 17:07 Urine Urobilinogen 4.0 mg/dL (<2.0) 11/21/18 17:07 Ur Leukocyte Esterase Neg (Negative) 11/21/18 17:07 Urine WBC (Auto) 1.0 /HPF (0.0-6.0) 11/21/18 17:07 Urine RBC (Auto) 1.0 /HPF (0.0-6.0) 11/21/18 17:07 Hyaline Casts 1 /LPF 11/21/18 17:07 Urine Mucus Few /HPF 11/21/18 17:07 Urine Opiates Screen Presumptive negative 11/21/18 17:54 Urine Methadone Screen Presumptive negative 11/21/18 17:54 Ur Barbiturates Screen Presumptive negative 11/21/18 17:54 Ur Phencyclidine Scrn Presumptive negative 11/21/18 17:54 Ur Amphetamines Screen Presumptive negative 11/21/18 17:54 U Benzodiazepines Scrn Presumptive negative 11/21/18 17:54 Urine Cocaine Screen Presumptive positive 11/21/18 17:54 U Marijuana (THC) Screen Presumptive positive 11/21/18 17:54 Drugs of Abuse Note Disclamer 11/21/18 17:54
[2018-11-23] MEDS ORDERED: COREG PO ONE (12:00)
[2018-11-23] MEDS ORDERED: NACL 0.9% 500 ML 500 ML IV SCH (12:00)
--- NOTE | 2018-11-23 14:44 | Event Note ---
Date: 11/23/18 Will plan for [facility] on 11/25. Sampson CARREON NP / DR. BOSCH
[2018-11-23] MEDS: SODIUM CHLORIDE FLUSH SYRINGE 10 ML IV SCH ×2 (19:26→23:11)
[2018-11-24] MEDS: LASIX IV SCH (06:32)
[2018-11-24 07:08] LABS: BUN/Creatinine Ratio 12; Blood Urea Nitrogen 13 mg/dL (9-20); Calcium 8.5 mg/dL (8.4-10.2); Hemolysis Index 18
[2018-11-24 09:25] LABS: Hematocrit 38.7 % (35.5-45.6); Mean Corpuscular HGB Conc 34 % (32-34); Mean Corpuscular Volume 95 fl (84-94); Platelet Count 206 K/mm3 (140-440); Red Blood Count 4.06 M/mm3 (3.65-5.03); Red Cell Distribution Width 14.2 % (13.2-15.2)
[2018-11-24] MEDS ORDERED: NACL 0.9% 500 ML 500 ML ONE (10:17)
[2018-11-24] MEDS ORDERED: ASPIRIN ONE (10:17)
[2018-11-24] MEDS: ASPIRIN PO SCH (10:22)
[2018-11-24] MEDS ORDERED: NACL 0.9% 500 ML 500 ML IV SCH ×2 (11:00)
[2018-11-24] MEDS ORDERED: HEPARIN/NS 5000 UNIT/500ML(CATH LAB) 1,000 ML IR ONE (11:25)
[2018-11-24] MEDS: SUBLIMAZE ONE ×2 (11:40→11:53)
[2018-11-24] MEDS: VERSED ONE ×2 (11:40→11:53)
[2018-11-24] MEDS: HEPARIN 10,000 UNITS/10 ML ONE ×3 (11:41→11:55)
[2018-11-24] MEDS: CALAN ONE ×3 (11:41→11:55)
[2018-11-24] MEDS: XYLOCAINE 2% INFILTRATI ONE ×2 (11:41→11:53)
[2018-11-24] MEDS: NITROGLYCERIN SYRINGE 3 ML ONE ×3 (11:42→11:55)
[2018-11-24] MEDS ORDERED: LOPRESSOR IV ONE (12:01)
--- NOTE | 2018-11-24 12:17 | Progress Note ---
Assessment and Plan acute respiratory failure acute systolic heart failure morbid obeisty afib htn rec: increase coreg 25mg bid, lasix 40mg daily and aldactone 25mg daily, and cont losartan and start eliquis for afib, possible discharge in pm if stable. Subjective Date of service: 11/24/18 Principal diagnosis: HF Interval history: sob has improved Objective Vital Signs Temp Pulse Resp BP Pulse Ox 11/24/18 08:56 97.9 F 81 20 132/87 91 11/24/18 03:38 97.6 F 89 20 116/86 92 11/24/18 00:21 98.1 F 93 H 18 122/72 94 11/23/18 22:50 105 H 11/23/18 19:58 98.7 F 62 18 140/96 93 11/23/18 18:51 54 L 11/23/18 18:33 98.3 F 54 L 18 119/81 92 11/23/18 14:28 97.8 F 18 115/80 - Physical Examination General: Appears Well HEENT: Positive: EOMI, Normocephaly, Mucus Membranes Moist Neck: Positive: neck supple, trachea midline, JVD/HJR (elevated) Cardiac: Positive: Irregularly Regular Lungs: Positive: clear to auscultation Neuro: Positive: Grossly Intact Abdomen: Positive: Soft, Active Bowel Sounds. Negative: Tender Skin: Positive: Wound (both legs) Musculoskeletal: Normal Range of Motion Extremities: Present: edema (moderate pitting bilateral leg edema) - Labs and Meds CBC 11/24/18 Range/Units 09:06 WBC 3.7 L (4.5-11.0) K/mm3 RBC 4.06 (3.65-5.03) M/mm3 Hgb 13.0 (11.8-15.2) gm/dl Hct 38.7 (35.5-45.6) % Plt Count 206 (140-440) K/mm3 Comprehensive Metabolic Panel 11/24/18 Range/Units 05:37 Sodium 139 (137-145) mmol/L Potassium 3.6 (3.6-5.0) mmol/L Chloride 97.1 L (98-107) mmol/L Carbon Dioxide 32 H (22-30) mmol/L BUN 13 (9-20) mg/dL Creatinine 1.1 (0.8-1.5) mg/dL Glucose 100 (75-100) mg/dL Calcium 8.5 (8.4-10.2) mg/dL - Imaging and Cardiology EKG: image reviewed Cardiac cath: report reviewed (normal coronaries and ef 25%) - Telemetry EKG Rhythm: Atrial Fibrillation
[2018-11-24] MEDS ORDERED: LASIX ONE (12:25)
[2018-11-24] MEDS ORDERED: COREG PO SCH (13:00)
[2018-11-24 13:44] VITALS: BP 125/86
[2018-11-24] MEDS: COZAAR PO SCH (15:33)
[2018-11-24] MEDS: SODIUM CHLORIDE FLUSH SYRINGE 10 ML IV SCH (15:33)
[2018-11-24] MEDS: ALDACTONE PO SCH (15:33)
[2018-11-24] MEDS: COREG PO SCH (15:34)
--- NOTE | 2018-11-24 15:40 | Discharge Summary ---
Providers - Providers Date of Admission: 11/21/18 23:44 Date of discharge: 11/24/18 Attending physician: VITOR AUSTIN 11/21/18 23:04 Consult to Physician [CONS] Urgent Comment: Consulting Provider: ROM FIELD Physician Instructions: Reason For Exam: edema, effusion, new onset afib 11/22/18 01:42 Consult to Wound/ET Nurse [CONS] Routine Reason For Exam: wound eval 11/22/18 06:18 Consult to Wound/ET Nurse [CONS] Routine Reason For Exam: wound eval 11/24/18 12:13 Consult to Cardiac Rehabilitation [CONS] Routine Reason For Exam: Cardiac Rehab Evaluation Primary care physician: KELTON ALVARENGA Hospitalization Condition: Fair Hospital course: Patient is 53 yo with hypertension, atrial fibrillation. He presented with bilateral lower ext swelling. he was evaluated in ED, diagnosed with acute resp failure due to acute systolic chf. He was started on Lasix and admitted. Patient was evaluated by Cardiology. Echo revealed EF 20-25%. Cardiac cath was recommended and done on 11/24. This revealed normal coronaries, cardiomyopathy. Patient was subsequently discharged home on Lasix, Coreg,cozaar, Eliquis on 11/24/18 to follow with cardiology as outpatient. Total time spent on discharge, 32 mins Disposition: DC-01 TO HOME OR SELFCARE - Discharge Diagnoses (1) Acute HFrEF (heart failure with reduced ejection fraction) Status: Acute (2) Cocaine abuse Status: Acute (3) Dilated cardiomyopathy Status: Acute (4) Persistent atrial fibrillation Status: Acute (5) Hypertension Status: Chronic Qualifiers: Hypertension type: essential hypertension Qualified Code(s): I10 - Essential (primary) hypertension (6) Morbid obesity Status: Chronic (7) Acute respiratory failure Status: Acute (8) HTN (hypertension) Status: Acute (9) Anasarca Status: Acute Core Measure Documentation - Palliative Care Palliative Care/ Comfort Measures: Not Applicable - Core Measures Any of the following diagnoses?: heart failure - Heart Failure Discharge Requirements CHINO/ARB for LVSD if EF <40%: Yes Beta marge at discharge: Yes Exam - Physical Exam Narrative exam: GEN: Not in acute distress, lying in bed, morbidly obese HEENT: Normocephalic, atraumatic, Neck: supple, No JVD Lungs: Clear to auscultation bilat, no crackles, no wheeze Abd:soft, non tender, non distended, normal bowel sounds Ext: No edema, no clubbing, no cyanosis Neuro:Awake,alert,oriented X 3, no focal signs Skin:No rash Psych: normal mood - Constitutional Vitals: Temp Pulse Resp BP Pulse Ox 98.2 F 105 H 18 125/86 92 11/24/18 12:23 11/24/18 13:15 11/24/18 13:15 11/24/18 13:15 11/24/18 13:15 Plan Activity: advance as tolerated Diet: low fat, low cholesterol, low salt Additional Instructions: 1.Follow up with Dr. Alvarenga in 1 week. 2.Follow up with Dr. Field on Thursday11/29/18 Follow up with: KELTON ALVARENGA JR, MD [Primary Care Provider] - 7 Days Prescriptions: Carvedilol [Coreg] 25 mg PO BID #60 tablet Losartan [Cozaar] 50 mg PO QDAY #30 tablet Apixaban [Eliquis] 5 mg PO Q12HR #60 tablet Furosemide [Lasix TAB] 40 mg PO DAILY #30 tablet
[2018-11-24 17:48] LABS: BUN/Creatinine Ratio 10; Blood Urea Nitrogen 12 mg/dL (9-20); Calcium 8.3 mg/dL (8.4-10.2); Hemolysis Index 11
--- NOTE | 2018-11-24 18:50 | Cardiac Catherization Report ---
LEFT HEART CATHETERIZATION CLINICAL INFORMATION: This is a 53-year-old morbidly obese male with heart failure symptoms with atrial fibrillation. He is here for left heart catheterization for cardiomyopathy. EF on echo was 20-25%. The patient was done with moderate sedation. Total sedation time 10 minutes, started at 11:52, finished at 12:02 p.m. Versed 1 mg, 50 mcg fentanyl. Left heart catheterization performed in the right radial artery, sterile technique, local anesthesia, 6-American radial sheath inserted. Left system engaged with a JL3.5 catheter. Left main is large and patent, bifurcates to large LAD, wrapped around the LAD is patent. Diagonal 1 and diagonal 2 are large caliber vessels. Ramus is a medium caliber vessel, it is patent. Circa is a large dominant vessel, patent. OM1 and OM2 are klegum-ml-[id number] caliber vessel, patent. LPDA is [id number] caliber vessel, patent. RCA is a small nondominant vessel engaged with JR4 catheter. LV gram done in BAHAMIAN and TONEY view shows severe LV dysfunction, EF 25%. LVEDP 18 mmHg, LV ____. Aortic is 146/100. No gradient across the aortic valve on pullback. 5-American catheters were taken over guidewire, 6-American radial sheath was discontinued. Radial band applied. No hematoma, no bleeding. SUMMARY: Normal coronaries, left dominant system with severe LV dysfunction, nonischemic cardiomyopathy. The patient tolerated the procedure well. Discussed the results with the patient and patient's family. JOB# [id number] LOUANN/MALORIE
[2018-11-24] MEDS ORDERED: ELIQUIS PO SCH (22:00)
[2018-11-25] MEDS ORDERED: LASIX PO SCH (06:00)
== END 2018-11-24 18:56 | disposition home or self-care (01) | DRG 286 ==
LOC: ED 16:36 → EDSTATUS 16:42 → 4A 23:44
PROVIDERS: ADMIT Internal Medicine; ATTEND Internal Medicine
PROC: 3E0234Z Introduction of Serum, Toxoid and Vaccine into Muscle, Percutaneous Approach (ICD-10-PCS; 2018-11-22)
PROC: 4A023N7 Measurement of Cardiac Sampling and Pressure, Left Heart, Percutaneous Approach (ICD-10-PCS; principal; 2018-11-24)
PROC: B2111ZZ Fluoroscopy of Multiple Coronary Arteries using Low Osmolar Contrast (ICD-10-PCS; 2018-11-24)
PROC: B2151ZZ Fluoroscopy of Left Heart using Low Osmolar Contrast (ICD-10-PCS; 2018-11-24)
DX: I11.0 Hypertensive heart disease with heart failure (principal); I50.21 Acute systolic (congestive) heart failure; J96.00 Acute respiratory failure, unspecified whether with hypoxia or hypercapnia; Z68.42 Body mass index [BMI] 45.0-49.9, adult; I42.0 Dilated cardiomyopathy; E66.01 Morbid (severe) obesity due to excess calories; I48.2 Chronic atrial fibrillation; I87.2 Venous insufficiency (chronic) (peripheral); N50.89 Other specified disorders of the male genital organs; F19.10 Other psychoactive substance abuse, uncomplicated; F12.90 Cannabis use, unspecified, uncomplicated; F14.10 Cocaine abuse, uncomplicated; Z82.49 Family history of ischemic heart disease and other diseases of the circulatory system; Z88.1 Allergy status to other antibiotic agents; Z79.899 Other long term (current) drug therapy; Z72.89 Other problems related to lifestyle; Z23 Encounter for immunization
CPT/HCPCS: 36415; 71046; 71275; 80048; 80053; 80307; 81001; 82550; 82553; 83735; 83880; 84439; 84443; 84484; 85025; 85027; 85379; 85610; 85730; 90686; 90732; 93005; 93010; 93306; 93458; 93970; 93975; G0378; C1894; J1644; J1650; J1940; J2250; J3010; J7040; Q9967

== ENCOUNTER 2019-05-13 11:00 | Outpatient (CLI) | payer BC | END 2019-05-13 11:01 | disposition home or self-care (01) | LOC: SLR 11:00 | PROVIDERS: ATTEND Internal Medicine | DX: G47.33 Obstructive sleep apnea (adult) (pediatric) (principal); R06.83 Snoring; R40.0 Somnolence | CPT/HCPCS: 95810 ==

== ENCOUNTER 2019-06-08 11:00 | Outpatient (CLI) | payer BC | END 2019-06-08 11:01 | disposition home or self-care (01) | LOC: SLR 11:00 | PROVIDERS: ATTEND Otolaryngology | DX: G47.33 Obstructive sleep apnea (adult) (pediatric) (principal); R40.0 Somnolence; R06.83 Snoring; E66.9 Obesity, unspecified; I11.0 Hypertensive heart disease with heart failure; I50.9 Heart failure, unspecified | CPT/HCPCS: 95811 ==